=== PATIENT | female | born 2000 | race Caucasian/White ===

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

== ENCOUNTER 2019-05-11 09:53 | Inpatient (IN) ==
--- OUTSIDE RECORDS SUMMARY | 2019-05-11 09:57 | External Medical Summary | Continuity of Care Document ---
:2000 Author Name Sheri Bonds Address Unavailable Unavailable , Care Team Providers Name Role Phone Charity Hartman M.D. Unavailable [email or web address] Jorge ROBLES Unavailable Unavailable Problems Active medical history not documented Allergies and Adverse Reactions Allergy history not documented Medications Medications not documented Procedures Procedures not documented Immunizations Immunizations not documented Plan of Treatment Planned Observations Planned Goals not documented Results No Known Results Results not documented Encounters Appointment; Ju Ashton DO 27-Nov-2017 9:00 Encounter Diagnosis: Problem not documented Appointment; Shay Hartman M.D. 18-Nov-2017 14:15 Encounter Diagnosis: Problem not documented Appointment; Shay Hartman M.D. 05-Dec-2017 9:15 Encounter Diagnosis: Problem not documented
[2019-05-11] MEDS ORDERED: ONDANSETRON INJ 2 MG/ML 2 ML VIAL IV STA ×2 (10:24→13:50)
[2019-05-11] MEDS ORDERED: SODIUM CHLORIDE 0.9% 1000ML 1,000 ML IV ONE (10:24)
[2019-05-11] MEDS ORDERED: KETOROLAC TROMETHAMINE 15 MG/ML VIAL IV STA (10:35)
--- NOTE | 2019-05-11 10:39 | Emergency Department Note ---
ED Provider Note CHIEF COMPLAINT: Abdominal pain, nausea and vomiting HISTORY OF PRESENTING ILLNESS: This is a 19-year-old female who presents to the emergency department by private vehicle with complaint of diffuse abdominal pain, nausea and vomiting that started early this morning. Patient states that the abdominal pain is constant, and her central abdomen and spreading outward, describes as stabbing and rates it as 7/10. She took Tylenol this morning with minimal relief. She has not been able to keep down any food and minimal liquids because of the nausea and vomiting. 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 Her last bowel movement was yesterday and was normal. She states she has been passing small amounts of gas today, but does not have any urge to move her bowels. She denies any fevers or chills. She denies any chest pain, shortness of breath, back pain, diarrhea, bloody or black stools, urinary symptoms, or unusual rash. REVIEW OF SYSTEMS: A complete 10 point review of systems was reviewed with the patient with pertinent positives and negatives as per history of present illness. All else were negative. PAST MEDICAL HISTORY: Anemia, Peutz-Jeghers syndrome, previous small bowel resection surgeries SOCIAL HISTORY: Lives at home, she is a [employer] student, denies tobacco use ALLERGIES: No known allergy PHYSICAL EXAM: CONSTITUTIONAL: Pleasant and cooperative. Nontoxic-appearing and in no acute distress. Mildly dehydrated, but otherwise well appearing and well nourished. HEENT: Normocephalic, atraumatic. PERRL, EOMI. Pharynx normal. Tacky mucous membranes. NECK: Supple, full active range of motion without discomfort. RESPIRATORY: Clear to auscultation bilaterally with no wheezing, crackles, rhonchi or stridor. Equal expansion bilaterally. CARDIOVASCULAR: Regular rate and rhythm with no murmurs, rubs or gallops. Normal peripheral perfusion. No edema. GASTROINTESTINAL: Diffuse tenderness to palpation throughout the abdomen, most tender in the mid and left lower quadrant. No rebound tenderness or guarding. Soft and nondistended. No palpable masses or HSM. Bowel sounds present in all quadrants. No CVA tenderness bilaterally. MUSCULOSKELETAL: Full range of motion of all joints without discomfort. INTEGUMENTARY: No rash or other significant dermatologic conditions noted. NEUROLOGIC: Alert and oriented X 4 with normal affect. Normal strength and sensation in all 4 extremities. Normal speech. Normal gait observed. ED COURSE AND MEDICAL DECISION MAKING: CC: Patient presenting with complaint of abdominal pain, nausea and vomiting DIFFERENTIAL DIAGNOSIS: Includes, but not limited to gastroenteritis, ga stritis, peptic ulcer disease, pancreatitis, cholecystitis, cholelithiasis, small bowel obstruction, adhesions, colitis, appendicitis, mesenteric adenitis, UTI, dehydration, among others. INTERPRETATION OF LABS: Moderate leukocytosis with leftward shift, no anemia, normal platelets, no significant electrolyte abnormalities, normal renal function, normal liver enzymes and lipase. UA appears contaminated, urine negative. IMAGING: CT abd pelvis IV con only CLINICAL HISTORY: abd pain, n/v, hx Peutz-Jeghers COMPARISON STUDY: None. TECHNIQUE: The patient was scanned in a dynamic helical fashion during intravenous administration of 94 cc of Optiray 320. A dose lowering technique was utilized adhering to the principles of ALARA. CT DOSE: 292.48 mGy.cm FINDINGS: Lower chest: The heart is normal in size and configuration, without pericardial effusion. The lung bases and pleural spaces are clear. Liver: The contrast-enhanced liver is normal in size, contour, and attenuation. There is no intrahepatic biliary ductal dilatation. The hepatic veins and portal veins are patent. Gallbladder: Unremarkable. Spleen: Normal in size and attenuation. Pancreas: Unremarkable. Adrenal glands: Unremarkable. Kidneys: There is symmetric renal cortical enhancement. The kidneys are normal in size without hydronephrosis. Bowel: Within the right upper quadrant, there is a short segment small bowel intussusception at the level of a prior surgical resection and anastomosis. This does not appear to be resulting in a bowel obstruction. There may be a polyp lead point. There are dilated distal ileal small bowel loops with a small bowel feces sign. The findings are indicative of a small bowel obstruction of uncertain chronicity. No definite transition point is visualized. There are postsurgical changes involving the cecum. Peritoneum: There is no intraperitoneal free air or abdominal ascites. Vasculature: The abdominal aorta is normal in course and caliber. Adenopathy: None. Pelvic viscera: There is an indwelling IUD Skeletal structures: No destructive osseous lesions are seen. IMPRESSION: 1. Evidence of prior surgery with an apparent segmental small bowel resection and anastomosis. In addition there are postsurgical changes involving the cecum 2. Short segment right upper quadrant small bowel intussusception at the site of prior surgical resection and anastomosis. This does not appear to be resulting in a bowel obstruction. There is a possible polypoid lesion lead point 3. Dilated distal small bowel loops with a small bowel feces sign. A discrete transition point is not visualized. The findings are suggestive of a partial small bowel obstruction of uncertain chronicity MEDICATION RECONCILIATION: I attest that I have personally reviewed the patient's current medication list. INITIAL VITAL SIGNS REVIEW: I reviewed the patient's initial vital signs and interpret them as follows: T: Afebrile; BP: Normotensive; HR: Within normal limits; RR: Within normal limits; Pulse Ox: Within normal limits on room air. Blood pressure screening: The patient was found to have normal blood pressure on screening and does not require follow-up for repeat blood pressure check. MDM SUMMARY: Patient was evaluated at bedside, history and physical exam performed. Patient is alert and oriented, no acute distress, resting calmly in stretcher. Patient does have diffuse tenderness throughout the abdomen, most tender in the mid and left-sided abdomen. No acute abdomen. She complains of nausea but is not actively vomiting. She does appear to be mildly dehydrated. Orders were placed at bedside for labs, UA and urine , IV fluid bolus for hydration, IV Toradol for pain, IV Zofran for nausea, CT abdomen/pelvis with IV contrast to evaluate for abdominal pain. Patient discussed with Dr. Rossi, who agrees with my assessment, plan, and disposition. Labs and imaging reviewed as above, labs are notable for leukocytosis, and otherwise unremarkable. No clear UTI and she is not . CT imaging shows both a small bowel intussusception as well as evidence of a partial small bowel obstruction, which I suspect is the cause of her symptoms. Patient continues to complain of pain and nausea, although she does not appear significantly uncomfortable and is resting calmly in the stretcher. Her mother states "she always gets Dilaudid for this, she needs something else for pain." Patient was given an IV dose of Dilaudid as well as another dose of Zofran. Patient is being kept n.p.o. and IV fluids for maintenance were ordered. I spoke on the phone with Bill Sisitki, PA-C with general surgery, who felt that the patient should be admitted to the medicine service and they were happy to consult on her care while patient is admitted. I spoke with Dr. Cruz, [facility], who agrees to evaluate the patient for admission. Patient reassessed multiple times throughout ED stay, she has remained hemodynamically stable, afebrile, and reports her pain and nausea are currently well managed after the Dilaudid and Zofran. The patient and her family were updated on all results and plan for admission, they verbalized understanding and the patient was agreeable to this plan. The patient was stable at time of admission to the floor. The chart was completed utilizing [employer] Speech voice recognition software. Grammatical errors, random word insertions, pronoun errors, and incomplete sentences are an occasional consequence of this system due to software limitations, ambient noise, and hardware issues. Any formal questions or concerns about the content, text, or information contained within the body of this dictation should be directly addressed to the nurse practitioner for clarification. Impression & Plan Small bowel obstruction, Nausea & vomiting, Abdominal pain, Peutz-Jeghers syndrome, Intussusception Past Med/Surg History Social History Preferred Language: Tongan Communication Ability: Effective Supervisor [employer] Required: No Beliefs That Will Affect Care: None Current Living Situation: Other Current Living Situation Comment: room mate current occupational status: student Feels Safe at Home: Yes Smoking Status: Never smoker Hx Alcohol Use: No Hx Substance Use: No Results & Data Vital Signs Vital Signs - 24 hr 05/11/19 09:56 05/11/19 11:51 05/11/19 13:40 Temperature 36.6 C Temperature Source Oral Sepsis Recent Fever Within 48 Hours No Sepsis New/Unexplained Change in Mental Status No Sepsis Action Taken by Nursing No Action Required Pulse Rate 86 Pulse Rate [Left] 76 83 Pulse Rhythm Regular Pulse Strength Normal Respiratory Rate 20 20 20 Respiratory Effort / Characteristics Non-Labored Spontaneous Non-Labored Non-Labored Respiratory Depth Normal Normal Normal Respiratory Pattern Regular Regular Apnea Blood Pressure 118/77 Blood Pressure [Left Arm] 119/75 119/83 Blood Pressure Mean 90 Blood Pressure Mean [Left Arm] 89 95 Blood Pressure Position Sitting Pulse Oximetry 98 97 97 Oxygen Delivery Method Room Air Room Air Room Air 05/11/19 14:10 05/11/19 14:57 Temperature Temperature Source Sepsis Recent Fever Within 48 Hours Sepsis New/Unexplained Change in Mental Status Sepsis Action Taken by Nursing Pulse Rate Pulse Rate [Left] 90 98 H Pulse Rhythm Pulse Strength Respiratory Rate 20 20 Respiratory Effort / Characteristics Non-Labored Non-Labored Respiratory Depth Normal Normal Respiratory Pattern Regular Regular Blood Pressure Blood Pressure [Left Arm] 116/75 112/75 Blood Pressure Mean Blood Pressure Mean [Left Arm] 88 87 Blood Pressure Position Pulse Oximetry 98 97 Oxygen Delivery Method Room Air Room Air Laboratory Data Result diagrams: 05/12/19 05:14 05/12/19 05:14 Lab Results 05/11/19 05/11/19 05/11/19 Range/Units 11:17 11:17 11:40 WBC 16.87 H (4.8-10.8) K/uL RBC 4.86 (4.2-5.4) M/uL Hgb 14.3 (12.0-16.0) g/dL Hct 41.2 (37-47) % MCV 84.8 (80-100) fL MCH 29.4 (25-34) pg MCHC 34.7 (32-36) g/dL RDW Std Deviation 44.4 (36.4-46.3) fL RDW Coeff of Cristina 14.2 (11.5-14.5) % Plt Count 315 (130-400) K/uL MPV 8.9 (7.4-10.4) fL Immature Gran % (Auto) 0.4 % Neut % (Auto) 87.3 % Lymph % (Auto) 6.9 % [place] % (Auto) 5.2 % Eos % (Auto) 0.1 % Baso % (Auto) 0.1 % Immature Gran # (Auto) 0.07 H (0.00-0.02) K/uL Neut # (Auto) 14.73 H (1.4-6.5) K/uL Lymph # (Auto) 1.17 L (1.2-3.4) K/uL [place] # (Auto) 0.87 H (0.11-0.59) K/uL Eos # (Auto) 0.01 (0-0.5) K/uL Baso # (Auto) 0.02 (0-0.2) K/uL Sodium 137 (136-145) mmol/L Potassium 3.9 (3.5-5.1) mmol/L Chloride 105 (98-107) mmol/L Carbon Dioxide 24 (21-32) mmol/L Anion Gap 8.0 (3-11) BUN 10 (7-18) mg/dl Creatinine 0.56 L (0.6-1.2) mg/dl Est Cr Clr Drug Dosing 154.5 ml/min Est GFR ( Amer) > 150.0 Est GFR (Non-Af Amer) 133.3 BUN/Creatinine Ratio 17.0 (10-20) Glucose 91 (70-99) mg/dl Calcium 9.7 (8.5-10.1) mg/dl Total Bilirubin 0.9 (0.2-1) mg/dl AST 14 L (15-37) U/L ALT 18 (12-78) U/L Alkaline Phosphatase 87 (45-117) U/L Total Protein 8.1 (6.4-8.2) gm/dl Albumin 4.4 (3.4-5.0) gm/dl Globulin 3.7 (2.5-4.0) gm/dl Albumin/Globulin Ratio 1.2 (0.9-2) Lipase 91 (73-393) U/L Urine Color Yellow Urine Appearance Clear (Clear) Urine pH 6.5 (4.5-7.5) Ur Specific [place] 1.028 (1.000-1.030) Urine Protein Negative (Negative) Urine Glucose (UA) Negative (Negative) Urine Ketones Trace H (Negative) Urine Blood Trace H (Negative) Urine Nitrite Negative (Negative) Urine Bilirubin Negative (Negative) Urine Urobilinogen Negative (Negative) Ur Leukocyte Esterase Negative (Negative) Urine WBC (Auto) 5-10 H (0-5) /hpf Urine RBC (Auto) 5-10 H (0-4) /hpf U Hyaline Cast (Auto) 1-5 (0-5) /lpf U Epithel Cells (Auto) >30 H (0-5) /lpf Urine Bacteria (Auto) Negative (Negative) POC Ur Test (NEG) 05/11/19 Range/Units 11:40 WBC (4.8-10.8) K/uL RBC (4.2-5.4) M/uL Hgb (12.0-16.0) g/dL Hct (37-47) % MCV (80-100) fL MCH (25-34) pg MCHC (32-36) g/dL RDW Std Deviation (36.4-46.3) fL RDW Coeff of Cristina (11.5-14.5) % Plt Count (130-400) K/uL MPV (7.4-10.4) fL Immature Gran % (Auto) % Neut % (Auto) % Lymph % (Auto) % [place] % (Auto) % Eos % (Auto) % Baso % (Auto) % Immature Gran # (Auto) (0.00-0.02) K/uL Neut # (Auto) (1.4-6.5) K/uL Lymph # (Auto) (1.2-3.4) K/uL [place] # (Auto) (0.11-0.59) K/uL Eos # (Auto) (0-0.5) K/uL Baso # (Auto) (0-0.2) K/uL Sodium (136-145) mmol/L Potassium (3.5-5.1) mmol/L Chloride (98-107) mmol/L Carbon Dioxide (21-32) mmol/L Anion Gap (3-11) BUN (7-18) mg/dl Creatinine (0.6-1.2) mg/dl Est Cr Clr Drug Dosing ml/min Est GFR ( Amer) Est GFR (Non-Af Amer) BUN/Creatinine Ratio (10-20) Glucose (70-99) mg/dl Calcium (8.5-10.1) mg/dl Total Bilirubin (0.2-1) mg/dl AST (15-37) U/L ALT (12-78) U/L Alkaline Phosphatase (45-117) U/L Total Protein (6.4-8.2) gm/dl Albumin (3.4-5.0) gm/dl Globulin (2.5-4.0) gm/dl Albumin/Globulin Ratio (0.9-2) Lipase (73-393) U/L Urine Color Urine Appearance (Clear) Urine pH (4.5-7.5) Ur Specific [place] (1.000-1.030) Urine Protein (Negative) Urine Glucose (UA) (Negative) Urine Ketones (Negative) Urine Blood (Negative) Urine Nitrite (Negative) Urine Bilirubin (Negative) Urine Urobilinogen (Negative) Ur Leukocyte Esterase (Negative) Urine WBC (Auto) (0-5) /hpf Urine RBC (Auto) (0-4) /hpf U Hyaline Cast (Auto) (0-5) /lpf U Epithel Cells (Auto) (0-5) /lpf Urine Bacteria (Auto) (Negative) POC Ur Test NEG (NEG) Administered Medications Discontinued Medications Heparin Sodium (Porcine) (Heparin Sodium (Porcine)) 5,000 units SQ Q8 JEWELS Stop: 06/10/19 21:59 Last Admin: 05/12/19 05:42 Dose: Not Given Documented by: [id number] Admin: 05/11/19 21:34 Dose: Not Given Documented by: [id number] Hydromorphone HCl (Dilaudid) 0.5 mg IV NOW STA Stop: 05/11/19 13:51 Last Admin: 05/11/19 14:04 Dose: 0.5 mg Documented by: [id number] Hydromorphone HCl (Dilaudid) 0.5 mg IV Q4H PRN PRN Reason: Pain Stop: 05/25/19 17:50 Last Admin: 05/11/19 22:35 Dose: 0.5 mg Documented by: [id number] Admin: 05/11/19 18:27 Dose: 0.5 mg Documented by: [id number] Sodium Chloride (Nss 1000ml) 1,000 mls @ 999 mls/hr IV .Q1H1M ONE Stop: 05/11/19 11:24 Last Infusion: 05/11/19 12:54 Dose: 0 mls/hr Documented by: [id number] Admin: 05/11/19 11:41 Dose: 999 mls/hr Documented by: [id number] Sodium Chloride (Nss 1000ml) 1,000 mls @ 125 mls/hr IV .Q8H JEWELS Stop: 06/10/19 13:59 Last Infusion: 05/11/19 21:51 Dose: 0 mls/hr Documented by: [id number] Admin: 05/11/19 14:06 Dose: 125 mls/hr Documented by: [id number] Sodium Chloride (Nss 1000ml) 1,000 mls @ 125 mls/hr IV .Q8H JEWELS Stop: 06/10/19 17:50 Last Admin: 05/12/19 11:31 Dose: Not Given Documented by: [id number] Infusion: 05/12/19 11:31 Dose: 0 mls/hr Documented by: [id number] Infusion: 05/12/19 06:19 Dose: 125 mls/hr Documented by: [id number] Admin: 05/12/19 05:30 Dose: 125 mls/hr Documented by: [id number] Infusion: 05/12/19 05:30 Dose: 125 mls/hr Documented by: [id number] Admin: 05/11/19 21:36 Dose: 125 mls/hr Documented by: [id number] Famotidine 20 mg/ Syringe 5 mls @ 2.5 mls/min IV BID JEWELS Stop: 06/10/19 20:59 Last Admin: 05/12/19 08:07 Dose: 2.5 mls/min Documented by: [id number] Admin: 05/11/19 21:36 Dose: 2.5 mls/min Documented by: [id number] Ioversol (Optiray 320 100ml) 94 ml IV ONCE PRN PRN Reason: Interaction Checking Stop: 05/15/19 12:25 Last Admin: 05/11/19 12:26 Dose: 94 ml Documented by: [id number] Ketorolac Tromethamine (Toradol) 15 mg IV NOW STA Stop: 05/11/19 10:36 Last Admin: 05/11/19 11:40 Dose: 15 mg Documented by: [id number] Ondansetron HCl (Zofran) 4 mg IV NOW STA Stop: 05/11/19 10:25 Last Admin: 05/11/19 11:41 Dose: 4 mg Documented by: [id number] Ondansetron HCl (Zofran) 4 mg IV NOW STA Stop: 05/11/19 13:51 Last Admin: 05/11/19 14:04 Dose: 4 mg Documented by: [id number] Ondansetron HCl (Zofran) 4 mg IV Q4H PRN PRN Reason: Nausea Stop: 06/10/19 17:50 Last Admin: 05/12/19 05:41 Dose: 4 mg Documented by: [id number] Admin: 05/11/19 22:36 Dose: 4 mg Documented by: [id number] Admin: 05/11/19 18:35 Dose: 4 mg Documented by: [id number] Discharge Plan Visit Data *Final* Discharge Date/Time: 05/11/19 16:32 Chief Complaint: Abdominal Pain Stated Complaint: ABDOMINAL PAIN ED Provider: Dimitri Rossi ED Midlevel Provider: Gini Winkler Discharge Problem: Small bowel obstruction, Nausea & vomiting, Abdominal pain, Peutz-Jeghers syndrome, Intussusception Patient Disposition: Admitted As Inpatient Condition: Good Discharge Instructions Interventions: ED Discharge Assessment Last Done: 05/11/19 16:32 Discharge Problem: Nausea & vomiting Qualifiers: Vomiting type: unspecified Vomiting Intractability: intractable Qualified Code(s): R11.2 - Nausea with vomiting, unspecified Abdominal pain Qualifiers: Abdominal location: generalized Qualified Code(s): R10.84 - Generalized abdominal pain
[2019-05-11 11:36] LABS: Basophils # (auto) 0.02 K/uL (0-0.2); Basophils % (auto) 0.1 %; Eosinophils # (auto) 0.01 K/uL (0-0.5); Eosinophils % (auto) 0.1 %; Hematocrit (blood only) 41.2 % (37-47); Hemoglobin 14.3 g/dL (12.0-16.0); Immature Granulocytes # (auto) 0.07 K/uL (0.00-0.02); Immature Granulocytes % (auto) 0.4 %; Lymphocytes # (auto) 1.17 K/uL (1.2-3.4); Lymphocytes % (auto) 6.9 %; Mean Corpuscular Hemoglobin 29.4 pg (25-34); Mean Corpuscular Hgb Conc 34.7 g/dL (32-36); Mean Corpuscular Volume 84.8 fL (80-100); Mean Platelet Volume 8.9 fL (7.4-10.4); Monocytes # (auto) 0.87 K/uL (0.11-0.59); Monocytes % (auto) 5.2 %; Neutrophils # (auto) 14.73 K/uL (1.4-6.5); Neutrophils % (auto) 87.3 %; Platelet Count 315 K/uL (130-400); RDW Coefficient of Variation 14.2 % (11.5-14.5); RDW Standard Deviation 44.4 fL (36.4-46.3); Red Blood Count 4.86 M/uL (4.2-5.4); White Blood Count 16.87 K/uL (4.8-10.8)
[2019-05-11 11:54] LABS: Alanine Aminotransferase 18 U/L (12-78); Albumin Level 4.4 gm/dl (3.4-5.0); Aspartate Aminotransferase 14 U/L (15-37); Blood Urea Nitrogen 10 mg/dl (7-18); Calcium 9.7 mg/dl (8.5-10.1); Carbon Dioxide 24 mmol/L (21-32); Chloride 105 mmol/L (98-107); Creatinine Clr Calc Pharmacy 154.5 ml/min; Est GFR (African American) > 150.0; Est GFR (Non-African American) 133.3; Glucose 91 mg/dl (70-99); Lipase 91 U/L (73-393); Potassium 3.9 mmol/L (3.5-5.1); Sodium 137 mmol/L (136-145)
[2019-05-11 11:57] LABS: Albumin Globulin Ratio 1.2 (0.9-2); Alkaline Phosphatase 87 U/L (45-117); Bilirubin,Total 0.9 mg/dl (0.2-1); Globulin 3.7 gm/dl (2.5-4.0); Total Protein 8.1 gm/dl (6.4-8.2)
[2019-05-11 11:58] LABS: Appearance Urine Clear (Clear); Bacteria Urine Automated Negative (Negative); Bilirubin Urine Negative (Negative); Blood Urine Trace (Negative); Color Urine Yellow; Epithelial Cell Urine Auto >30 /lpf (0-5); Glucose Urine UA Negative (Negative); Ketones Urine Trace (Negative); Leukocyte Esterase Urine Negative (Negative); Nitrite Urine Negative (Negative); Protein Urine Negative (Negative); Specific Gravity Urine 1.028 (1.000-1.030); Urobilinogen Urine Negative (Negative); pH Urine 6.5 (4.5-7.5)
[2019-05-11] MEDS ORDERED: IOVERSOL 100ml IV PRN (12:26)
--- NOTE | 2019-05-11 12:59 | CT Scan Report ---
CT abd pelvis IV con only CLINICAL HISTORY: abd pain, n/v, hx Peutz-Jeghers COMPARISON STUDY: None. TECHNIQUE: The patient was scanned in a dynamic helical fashion during intravenous administration of 94 cc of Optiray 320. A dose lowering technique was utilized adhering to the principles of ALARA. CT DOSE: 292.48 mGy.cm FINDINGS: Lower chest: The heart is normal in size and configuration, without pericardial effusion. The lung ba ses and pleural spaces are clear. Liver: The contrast-enhanced liver is normal in size, contour, and attenuation. There is no intrahepa tic biliary ductal dilatation. The hepatic veins and portal veins are patent. Gallbladder: Unremarkable. Spleen: Normal in size and attenuation. Pancreas: Unremarkable. Adrenal glands: Unremarkable. Kidneys: There is symmetric renal cortical enhancement. The kidneys are normal in size without hydron ephrosis. Bowel: Within the right upper quadrant, there is a short segment small bowel intussusception at the l evel of a prior surgical resection and anastomosis. This does not appear to be resulting in a bowel o bstruction. There may be a polyp lead point. There are dilated distal ileal small bowel loops with a small bowel feces sign. The findings are indicative of a small bowel obstruction of uncertain chronic ity. No definite transition point is visualized. There are postsurgical changes involving the cecum. Peritoneum: There is no intraperitoneal free air or abdominal ascites. Vasculature: The abdominal aorta is normal in course and caliber. Adenopathy: None. Pelvic viscera: There is an indwelling IUD Skeletal structures: No destructive osseous lesions are seen. IMPRESSION: 1. Evidence of prior surgery with an apparent segmental small bowel resection and anastomosis. In add ition there are postsurgical changes involving the cecum 2. Short segment right upper quadrant small bowel intussusception at the site of prior surgical resec tion and anastomosis. This does not appear to be resulting in a bowel obstruction. There is a possibl e polypoid lesion lead point 3. Dilated distal small bowel loops with a small bowel feces sign. A discrete transition point is not visualized. The findings are suggestive of a partial small bowel obstruction of uncertain chronicity Electronically signed by: Mart Squires M.D. 05/11/2019 12:58 PM
[2019-05-11] MEDS ORDERED: HYDROmorphone INJ 0.5 MG/0.5 ML SYR IV STA (13:50)
[2019-05-11] MEDS ORDERED: SODIUM CHLORIDE 0.9% 1000ML 1,000 ML IV SCH (14:00)
--- NOTE | 2019-05-11 14:49 | Surgery Consultation ---
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 Had chicken and rice for dinner. Has otherwise been doing well. Has yearly evaluation over winter at home in the [facility] area. Symptoms improved after medicated in the ED. Allergies Allergy/AdvReac Type Severity Reaction Status Date / Time No Known Allergies Allergy Unverified 05/11/19 11:11 Home Medications Home Medications Medication Instructions Recorded Confirmed Type No Known Home Medications 05/11/19 05/11/19 History Patient History Social History Preferred Language: Kiswahili Communication Ability: Effective [employer] Bus Driver Required: No Beliefs That Will Affect Care: None Current Living Situation: Other Current Living Situation Comment: room mate current occupational status: student Feels Safe at Home: Yes Smoking Status: Never smoker Hx Alcohol Use: No Hx Substance Use: No Review of Systems Constitutional: no fever and no chills Gastrointestinal: + abdominal pain, + nausea and + vomiting (none while in ED) Physical Exam Constitutional: WD/WN, vitals as above Respiratory: normal respiratory effort Cardiovascular: Rate/Rhythm: regular rate Gastrointestinal (Abdomen): Inspection/Auscultation: + abdominal surgical scar (laparoscopy, mini-lap); abdomen not distended Percussion/Palpation: + abdomen tender (minimal generalized) and abdomen soft Results & Data Vital Signs (Past 12 Hours) Vital Signs Temp Pulse Pulse Resp BP BP Pulse Ox 05/11/19 14:10 90 20 116/75 98 05/11/19 13:40 83 20 119/83 97 05/11/19 11:51 76 20 119/75 97 05/11/19 09:56 36.6 C 86 20 118/[address] abd pelvis IV con only CLINICAL HISTORY: abd pain, n/v, hx Peutz-Jeghers COMPARISON STUDY: None. TECHNIQUE: The patient was scanned in a dynamic helical fashion during intraveno us administration of 94 cc of Optiray 320. A dose lowering technique was utilized adhering to the principles of ALARA. CT DOSE: 292.48 mGy.cm FINDINGS: Lower chest: The heart is normal in size and configuration, without pericardial effusion. The lung bases and pleural spaces are clear. Liver: The contrast-enhanced liver is normal in size, contour, and attenuation. There is no intrahepatic biliary ductal dilatation. The hepatic veins and portal veins are patent. Gallbladder: Unremarkable. Spleen: Normal in size and attenuation. Pancreas: Unremarkable. Adrenal glands: Unremarkable. Kidneys: There is symmetric renal cortical enhancement. The kidneys are normal in size without hydronephrosis. Bowel: Within the right upper quadrant, there is a short segment small bowel intussusception at the level of a prior surgical resection and anastomosis. This does not appear to be resulting in a bowel obstruction. There may be a polyp lead point. There are dilated distal ileal small bowel loops with a small bowel feces sign. The findings are indicative of a small bowel obstruction of uncertain chronicity. No definite transition point is visualized. There are postsurgical changes involving the cecum. Peritoneum: There is no intraperitoneal free air or abdominal ascites. Vasculature: The abdominal aorta is normal in course and caliber. Adenopathy: None. Pelvic viscera: There is an indwelling IUD Skeletal structures: No destructive osseous lesions are seen. IMPRESSION: 1. Evidence of prior surgery with an apparent segmental small bowel resection and anastomosis. In addition there are postsurgical changes involving the cecum 2. Short segment right upper quadrant small bowel intussusception at the site of prior surgical resection and anastomosis. This does not appear to be resulting in a bowel obstruction. There is a possible polypoid lesion lead point 3. Dilated distal small bowel loops with a small bowel feces sign. A discrete transition point is not visualized. The findings are suggestive of a partial small bowel obstruction of uncertain chronicity Electronically signed by: Mart Squires M.D. 05/11/2019 12:58 PM PG Care Time/CCT Total # of Minutes Spent Total Time Spent with Patient: Total time spent is greater than 50% in coordination of care (as documented) at patient's floor/unit and/or counseling patient:
--- NOTE | 2019-05-11 15:45 | History & Physical Report ---
Date of Service May 11, 2019 Assessment & Plan (1) Small bowel obstruction: Consult surgery. Keep the patient NPO. Add IV fluids. Present on Admission?: Yes (2) Peutz-Jeghers syndrome: Present on Admission?: Yes (3) Nausea & vomiting: And Zofran as needed for nausea vomiting. 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 Had chicken and rice for dinner. Has otherwise been doing well. Has yearly evaluation over winter at home in the [facility] area. Symptoms improved after medicated in the ED. Patient had last bowel movement yesterday. Further work-up done in the ER shows that patient has small bowel obstruction. The patient was seen by surgery team who advised conservative management and to admit the patient to hospitalist service. She received Zofran for nausea vomiting and Toradol for pain control. Allergies Allergy/AdvReac Type Severity Reaction Status Date / Time No Known Allergies Allergy Unverified 05/11/19 11:11 Home Medications Home Medications Medication Instructions Recorded Confirmed Type No Known Home Medications 05/11/19 05/11/19 History Past Med/Surg History Medical History Peutz-Jeghers syndrome Social History Preferred Language: Latvian current occupational status: student Feels Safe at Home: Yes Smoking Status: Never smoker Hx Alcohol Use: No Hx Substance Use: No Review of Systems Review of Systems: All systems reviewed & are unremarkable except as noted in HPI & below Gastrointestinal: + abdominal pain, + nausea, + vomiting and + constipation Physical Exam Physical Exam: GENERAL : No acute distress EYES: No icterus, gaze conjugate NOSE: No evidence of epistaxis MOUTH: No lesions or candidiasis, mucosa moist NECK: Supple LUNGS: CTA B/L, no wheezes, rales or rhonchi HEART: Regular, rate controlled ABDOMEN: Soft, NT, ND, BS Present EXTREMITIES: No LE edema, pedal pulses intact NEURO: A&OX3 Results & Data Vital Signs (Past 12 Hours) Vital Signs Temp Pulse Pulse Resp BP BP Pulse Ox 05/11/19 14:57 98 H 20 112/75 97 05/11/19 14:10 90 20 116/75 98 05/11/19 13:40 83 20 119/83 97 05/11/19 11:51 76 20 119/75 97 05/11/19 09:56 97.9 F 86 20 118/77 98 Laboratory Results 05/11/19 05/11/19 05/11/19 Range/Units 11:40 11:40 11:17 WBC (4.8-10.8) K/uL RBC (4.2-5.4) M/uL Hgb (12.0-16.0) g/dL Hct (37-47) % MCV (80-100) fL MCH (25-34) pg MCHC (32-36) g/dL RDW Std Deviation (36.4-46.3) fL RDW Coeff of Cristina (11.5-14.5) % Plt Count (130-400) K/uL MPV (7.4-10.4) fL Immature Gran % (Auto) % Neut % (Auto) % Lymph % (Auto) % Anderson % (Auto) % Eos % (Auto) % Baso % (Auto) % Immature Gran # (Auto) (0.00-0.02) K/uL Neut # (Auto) (1.4-6.5) K/uL Lymph # (Auto) (1.2-3.4) K/uL Anderson # (Auto) (0.11-0.59) K/uL Eos # (Auto) (0-0.5) K/uL Baso # (Auto) (0-0.2) K/uL Sodium 137 (136-145) mmol/L Potassium 3.9 (3.5-5.1) mmol/L Chloride 105 (98-107) mmol/L Carbon Dioxide 24 (21-32) mmol/L Anion Gap 8.0 (3-11) BUN 10 (7-18) mg/dl Creatinine 0.56 L (0.6-1.2) mg/dl Est Cr Clr Drug Dosing 154.5 ml/min Est GFR ( Amer) > 150.0 Est GFR (Non-Af Amer) 133.3 BUN/Creatinine Ratio 17.0 (10-20) Glucose 91 (70-99) mg/dl Calcium 9.7 (8.5-10.1) mg/dl Total Bilirubin 0.9 (0.2-1) mg/dl AST 14 L (15-37) U/L ALT 18 (12-78) U/L Alkaline Phosphatase 87 (45-117) U/L Total Protein 8.1 (6.4-8.2) gm/dl Albumin 4.4 (3.4-5.0) gm/dl Globulin 3.7 (2.5-4.0) gm/dl Albumin/Globulin Ratio 1.2 (0.9-2) Lipase 91 (73-393) U/L Urine Color Yellow Urine Appearance Clear (Clear) Urine pH 6.5 (4.5-7.5) Ur Specific [place] 1.028 (1.000-1.030) Urine Protein Negative (Negative) Urine Glucose (UA) Negative (Negative) Urine Ketones Trace H (Negative) Urine Blood Trace H (Negative) Urine Nitrite Negative (Negative) Urine Bilirubin Negative (Negative) Urine Urobilinogen Negative (Negative) Ur Leukocyte Esterase Negative (Negative) Urine WBC (Auto) 5-10 H (0-5) /hpf Urine RBC (Auto) 5-10 H (0-4) /hpf U Hyaline Cast (Auto) 1-5 (0-5) /lpf U Epithel Cells (Auto) >30 H (0-5) /lpf Urine Bacteria (Auto) Negative (Negative) POC Ur Test NEG (NEG) 05/11/19 Range/Units 11:17 WBC 16.87 H (4.8-10.8) K/uL RBC 4.86 (4.2-5.4) M/uL Hgb 14.3 (12.0-16.0) g/dL Hct 41.2 (37-47) % MCV 84.8 (80-100) fL MCH 29.4 (25-34) pg MCHC 34.7 (32-36) g/dL RDW Std Deviation 44.4 (36.4-46.3) fL RDW Coeff of Cristina 14.2 (11.5-14.5) % Plt Count 315 (130-400) K/uL MPV 8.9 (7.4-10.4) fL Immature Gran % (Auto) 0.4 % Neut % (Auto) 87.3 % Lymph % (Auto) 6.9 % Anderson % (Auto) 5.2 % Eos % (Auto) 0.1 % Baso % (Auto) 0.1 % Immature Gran # (Auto) 0.07 H (0.00-0.02) K/uL Neut # (Auto) 14.73 H (1.4-6.5) K/uL Lymph # (Auto) 1.17 L (1.2-3.4) K/uL Anderson # (Auto) 0.87 H (0.11-0.59) K/uL Eos # (Auto) 0.01 (0-0.5) K/uL Baso # (Auto) 0.02 (0-0.2) K/uL Sodium (136-145) mmol/L Potassium (3.5-5.1) mmol/L Chloride (98-107) mmol/L Carbon Dioxide (21-32) mmol/L Anion Gap (3-11) BUN (7-18) mg/dl Creatinine (0.6-1.2) mg/dl Est Cr Clr Drug Dosing ml/min Est GFR ( Amer) Est GFR (Non-Af Amer) BUN/Creatinine Ratio (10-20) Glucose (70-99) mg/dl Calcium (8.5-10.1) mg/dl Total Bilirubin (0.2-1) mg/dl AST (15-37) U/L ALT (12-78) U/L Alkaline Phosphatase (45-117) U/L Total Protein (6.4-8.2) gm/dl Albumin (3.4-5.0) gm/dl Globulin (2.5-4.0) gm/dl Albumin/Globulin Ratio (0.9-2) Lipase (73-393) U/L Urine Color Urine Appearance (Clear) Urine pH (4.5-7.5) Ur Specific [place] (1.000-1.030) Urine Protein (Negative) Urine Glucose (UA) (Negative) Urine Ketones (Negative) Urine Blood (Negative) Urine Nitrite (Negative) Urine Bilirubin (Negative) Urine Urobilinogen (Negative) Ur Leukocyte Esterase (Negative) Urine WBC (Auto) (0-5) /hpf Urine RBC (Auto) (0-4) /hpf U Hyaline Cast (Auto) (0-5) /lpf U Epithel Cells (Auto) (0-5) /lpf Urine Bacteria (Auto) (Negative) POC Ur Test (NEG) Diagnostic Findings CT abd pelvis IV con only CLINICAL HISTORY: abd pain, n/v, hx Peutz-Jeghers COMPARISON STUDY: None. TECHNIQUE: The patient was scanned in a dynamic helical fashion during intravenous administration of 94 cc of Optiray 320. A dose lowering technique was utilized adhering to the principles of ALARA. CT DOSE: 292.48 mGy.cm FINDINGS: Lower chest: The heart is normal in size and configuration, without pericardial effusion. The lung bases and pleural spaces are clear. Liver: The contrast-enhanced liver is normal in size, contour, and attenuation. There is no intrahepatic biliary ductal dilatation. The hepatic veins and portal veins are patent. Gallbladder: Unremarkable. Spleen: Normal in size and attenuation. Pancreas: Unremarkable. Adrenal glands: Unremarkable. Kidneys: There is symmetric renal cortical enhancement. The kidneys are normal in size without hydronephrosis. Bowel: Within the right upper quadrant, there is a short segment small bowel intussusception at the level of a prior surgical resection and anastomosis. This does not appear to be resulting in a bowel obstruction. There may be a polyp lead point. There are dilated distal ileal small bowel loops with a small bowel feces sign. The findings are indicative of a small bowel obstruction of uncertain chronicity. No definite transition point is visualized. There are postsurgical changes involving the cecum. Peritoneum: There is no intraperitoneal free air or abdominal ascites. Vasculature: The abdominal aorta is normal in course and caliber. Adenopathy: None. Pelvic viscera: There is an indwelling IUD Skeletal structures: No destructive osseous lesions are seen. IMPRESSION: 1. Evidence of prior surgery with an apparent segmental small bowel resection and anastomosis. In addition there are postsurgical changes involving the cecum 2. Short segment right upper quadrant small bowel intussusception at the site of prior surgical resection and anastomosis. This does not appear to be resulting in a bowel obstruction. There is a possible polypoid lesion lead point 3. Dilated distal small bowel loops with a small bowel feces sign. A discrete transition point is not visualized. The findings are suggestive of a partial small bowel obstruction of uncertain chronicity Code Status & VTE Plan VTE Prophylaxis Plan VTE Prophylaxis will be ordered: Yes PG Care Time/CCT Total # of Minutes Spent Total Time Spent with Patient: Total time spent is greater than 50% in coordination of care (as documented) at patient's floor/unit and/or counseling patient:
[2019-05-11] MEDS: HYDROmorphone INJ 0.5 MG/0.5 ML SYR IV PRN ×2 (18:27→22:35)
[2019-05-11] MEDS: ONDANSETRON INJ 2 MG/ML 2 ML VIAL IV PRN ×2 (18:35→22:36)
[2019-05-11] MEDS: HEPARIN SOD 5,000 UNIT/0.5 ML VIAL SQ SCH ×2 (20:45→21:34)
[2019-05-11] MEDS ORDERED: FAMOTIDINE 20 MG TAB PO SCH (21:00)
[2019-05-11] MEDS: SODIUM CHLORIDE 0.9% 1000ML 1,000 ML IV SCH (21:36)
[2019-05-11] MEDS: FAMOTIDINE 20 MG in SYRINGE 3 ML IV SCH (21:36)
[2019-05-12] MEDS: SODIUM CHLORIDE 0.9% 1000ML 1,000 ML IV SCH ×2 (05:30→11:31)
[2019-05-12 05:32] LABS: Hematocrit (blood only) 36.5 % (37-47); Hemoglobin 12.2 g/dL (12.0-16.0); Mean Corpuscular Hemoglobin 28.9 pg (25-34); Mean Corpuscular Hgb Conc 33.4 g/dL (32-36); Mean Corpuscular Volume 86.5 fL (80-100); Mean Platelet Volume 8.9 fL (7.4-10.4); Platelet Count 252 K/uL (130-400); RDW Coefficient of Variation 14.4 % (11.5-14.5); RDW Standard Deviation 45.5 fL (36.4-46.3); Red Blood Count 4.22 M/uL (4.2-5.4); White Blood Count 11.16 K/uL (4.8-10.8)
[2019-05-12] MEDS: ONDANSETRON INJ 2 MG/ML 2 ML VIAL IV PRN (05:41)
[2019-05-12] MEDS: HEPARIN SOD 5,000 UNIT/0.5 ML VIAL SQ SCH (05:42)
[2019-05-12 06:09] LABS: BUN Creatinine Ratio 13.3 (10-20); Blood Urea Nitrogen 7 mg/dl (7-18); Calcium 8.1 mg/dl (8.5-10.1); Carbon Dioxide 24 mmol/L (21-32); Chloride 110 mmol/L (98-107); Creatinine Clr Calc Pharmacy 176.6 ml/min; Est GFR (African American) > 150.0; Est GFR (Non-African American) 139.3; Glucose 71 mg/dl (70-99); Magnesium 1.9 mg/dl (1.8-2.4); Potassium 3.5 mmol/L (3.5-5.1); Sodium 140 mmol/L (136-145)
--- NOTE | 2019-05-12 07:17 | XRay Report ---
XR KUB/Abdomen 1 view CLINICAL HISTORY: 19 years-old Female presenting with sbo. TECHNIQUE: Single supine view of the abdomen was obtained. COMPARISON: CT from 05/11/2019. FINDINGS: Mild gaseous distention of small and large bowel with scattered stool. No significant worsening of di stended segments of bowel in comparison to recent CT. No gross pneumoperitoneum align for supine tech nique. Intrauterine device projects over the pelvis. Anastomotic suture line projects over the right mid abd omen. No calcifications project over the renal shadows allowing for bowel gas and stool. Osseous structures normal. IMPRESSION: 1. No significant interval worsening of prior distended small bowel. The current radiograph does not strongly demonstrate an obstructive bowel gas pattern. Electronically signed by: Oscar Phillips M.D. 05/12/2019 7:16 AM
--- NOTE | 2019-05-12 07:49 | Surgery Progress Note ---
Date of Service May 12, 2019 Assessment & Plan (1) Peutz-Jeghers syndrome: ok for d/c per primary Subjective patient sleeping, her mother is at bedside and plans to return home today for surgery Results & Data Vital Signs (Past 12 Hours) Vital Signs Temp Pulse Resp BP Pulse Ox 05/11/19 23:15 36.7 C 77 16 117/70 96 PG Care Time/CCT Total # of Minutes Spent Total Time Spent with Patient: Total time spent is greater than 50% in coor dination of care (as documented) at patient's floor/unit and/or counseling patient:
[2019-05-12] MEDS: FAMOTIDINE 20 MG in SYRINGE 3 ML IV SCH (08:07)
--- NOTE | 2019-05-12 16:30 | Discharge Summary ---
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 Had chicken and rice for dinner. Has otherwise been doing well. Has yearly evaluation over winter break at home in the [facility] area. Symptoms improved after medicated in the ED. Patient had last bowel movement yesterday. Further work-up done in the ER shows that patient has small bowel obstruction. The patient was seen by surgery team who advised conservative management and to admit the patient to hospitalist service. She received Zofran for nausea vomiting and Toradol for pain control. Principal Diagnosis Small bowel obstruction Discharge Exam Constitutional WD/WN, vitals as above Respiratory normal respiratory effort Cardiovascular Rate/Rhythm: regular rate Gastrointestinal (Abdomen) Inspection/Auscultation: + abdominal surgical scar (laparoscopy, mini-lap); abdomen not distended Percussion/Palpation: + abdomen tender (minimal generalized) and abdomen soft Discharge Data Allergies Allergy/AdvReac Type Severity Reaction Status Date / Time No Known Allergies Allergy Unverified 05/11/19 11:11 Consultations 05/11/19 14:17 ED Decision to Admit Stat 05/12/19 09:33 Burn CD for patient Routine Ordered Studies 05/11/19 10:24 CT abd pelvis IV con only Stat Hospital Course (1) Small bowel obstruction: CT scan showed a partial small bowel obstruction and an intussusception. Patient's mother contacted her home surgeon who requested the patient be seen at [facility]. The patient was discharged for outpatient follow up tomorrow. If she cannot tolerate PO liquids, she is to be directly admitted to [facility]. There is a small risk of personal transport, but the patient and her mother were willing to do this, and Dr. Maria Elena Romero (at [facility]) felt this was reasonable as well. Given her overall vital sign stability and non-acute abdominal exam, I felt the risk was minimal and this route was preferred by the patient and her mother. (2) Peutz-Jeghers syndrome: (3) Nausea & vomiting: And Zofran as needed for nausea vomiting. Add Pepcid for GI prophylaxis (4) Abdominal pain: Add Dilaudid as needed for severe pain Total Time Total Time Spent Total Time Spent (In Minutes): 45 Discharge Plan Discharge Items Patient Disposition: Home - Self-Care Reason For Visit: NAUSEA,VOMITING,ABDOMINAL PAIN Discharge Diagnosis: Small bowel obstruction Condition on Discharge: Good Activity: Resume your previous activity Non-emergency contact: Primary Care Provider and Surgeon Call non-emergency contact if: your symptoms worsen Follow-up/Referrals: [facility] [Primary Care Provider] - Diet: Regular Diet Comment: Clear liquids until seen by your surgeon Addtl Attending Provider Instructions: Please follow up with Dr. Romero's office tomorrow. If you cannot tolerate liquids, please call their office for direct admission to [facility]. Pending Studies at Discharge: No Stand-Alone Forms: My [facility] Whisk, Opioid Pain Management Medications and DC Order Prescriptions: New ondansetron 8 mg tablet,disintegrating 8 mg PO Q6H 2 Days Qty: 8 RF: 0 oxycodone 5 mg/5 mL solution 5 mg PO Q6H PRN (Reason: pain) Qty: 15 RF: 0 No Action No Known Home Medications RF: 0 Discharge Orders: Discharge Order (Routine); Ordered 05/12/19 Ordered By: Joe Booker Admission Data Admit Date/Time: 05/11/19 15:34 Attending Provider: Joe Booker Admit Provider: Kurt Cruz Primary Care Provider: [facility] Other Providers: Joe Booker Other Interventions: Discharge Summary Assessment (RN) Last Done: 05/12/19 11:18 DC Date/Time DO NOT enter until pt leaves facility: 05/12/19 12:07
== END 2019-05-12 12:07 | disposition home or self-care (01) | DRG 389 ==
LOC: ED 09:53 → 3N 15:34 → SUATTDRO 15:34 → 3N 16:32